=== PATIENT | female | born 1980 | race Caucasian/White ===

== ENCOUNTER → 2020-08-24 | Outpatient (CLI) | payer MEDICAID, OTHER ==
--- NOTE | 2020-08-24 15:23 | CT ---
EXAMINATION TYPE: CT abdomen pelvis w con DATE OF EXAM: 08/24/2020 COMPARISON: None HISTORY: RLQ pain with bowel changes. CT DLP: 1295 mGycm CONTRAST: CT scan of the abdomen and pelvis is performed with Oral Contrast and with IV Contrast, patient injec jhonatan with 100 mL of Isovue 300. FINDINGS: LUNG BASES-: No visible nodule. No infiltrate. LIVER/GB: Cholecystectomy clips are in place. No space occupying hepatic lesion. Biliary tree is of n ormal caliber. PANCREAS: No inflammation. No distinct mass. SPLEEN: No splenic enlargement. No lesion seen. ADRENALS: No nodule. No thickening. KIDNEYS/BLADDER: No hydronephrosis. Nonobstructing calculus mid pole right kidney measures 3 mm. No distinct renal mass. Urinary bladder grossly unremarkable. BOWEL: Normal appendix. Normal bowel caliber. No inflammation. Rare sigmoid diverticula without div erticulitis. GENITAL ORGANS: 1.5 cm. Uterus and left ovary are unremarkable. LYMPH NODES: No greater than 1cm abdominal or pelvic lymph nodes are appreciated. AORTA: No significant abnormality. OSSEOUS STRUCTURES: No significant abnormality is seen. OTHER: No significant additional abnormality is seen. IMPRESSION: 1. Nonobstructing right renal calculus. 2. No evidence for diverticulitis.
--- NOTE | 2020-08-24 15:32 | CT ---
EXAMINATION TYPE: CT ankle LT wo con, CT ankle RT wo con DATE OF EXAM: 08/24/2020 COMPARISON: None HISTORY: Pre surgical per patient. CT DLP: [address] of the bilateral ankles TECHNIQUE: Unenhanced CT of the bilateral ankles was performed with bone and soft tissue window setti ngs submitted in the axial coronal and sagittal planes. FINDINGS: Left ankle: Plate fixation and screws extend from the distal left fibular diaphysis through the later al malleolar region. Screw defects are noted from the fibula into the tibia distally. There is no zeny dence for acute fracture or dislocation. Ankle mortise is within normal limits. No significant soft t issue swelling seen. Right ankle: There is no evidence for fracture or dislocation. Ankle mortise is intact. Soft tissues are within normal limits. IMPRESSION: 1. Postoperative changes of the left ankle without evidence for acute fracture of either ankle.
== END | disposition home or self-care (01) ==
LOC: RADCTMAIN 12:25
PROVIDERS: ATTEND Physician Assistant
DX: N20.0 Calculus of kidney (principal); Z98.890 Other specified postprocedural states
CPT/HCPCS: 74177; 73700 ×2; Q9967